=== PATIENT | female | born 1935 | race Caucasian/White ===

== ENCOUNTER 2017-10-20 10:09 | Inpatient (IN) | payer MEDICARE ==
[2017-10-20 11:52] LABS: CKMB 1.2 ng/mL (0-6.6)
[2017-10-20 11:53] LABS: ALT (SGPT) 15 U/L (8-55); AST (SGOT) 14 U/L (5-34); Albumin 3.5 g/dL (3.4-4.8); Alkaline Phosphatase 64 U/L (40-150); Anion Gap 17 mmol/L (10-20); BUN (Urea Nitrogen) 19 mg/dL (9.8-20.1); Bilirubin, Total 0.4 mg/dL (0.2-1.2); Calc. Creatinine Clearance 0 mL/min (70-130); Calcium 8.3 mg/dL (7.8-10.44); Carbon Dioxide 15 mmol/L (23-31); Chloride 107 mmol/L (98-107); Estimated GFR-MDRD 35; Globulin 3.6 g/dL (2.4-3.5); Glucose 96 mg/dL (83-110); Protein, Total 7.1 g/dL (6.0-8.3); Sodium 135 mmol/L (136-145)
--- NOTE | 2017-10-20 12:30 | RAD ---
PA AND LATERAL CHEST: History: Altered mental status. Congestion. Pneumonia. FINDINGS/IMPRESSION: The heart size is borderline. There is a left sided pacemaker. No consolidation, pneumothoraces, lily k pleural edema or pleural effusions are seen. There are degenerative changes in the spine. POS: [facility]
[2017-10-20 13:18] LABS: Bilirubin Negative (Negative); Blood, Urine Moderate (Negative); Clarity Clear (Clear); Glucose, Urine (Dipstick) Negative (Negative); Leukocyte Moderate (Negative); Nitrite Negative (Negative); Protein, Urine (Dipstick) 30 mg/dL (Neg-Trace); Urobilinogen 0.2 mg/dL (0.2-1.0)
[2017-10-20 13:20] LABS: Bacteria/HPF 1+ HPF (None Seen); Renal Epithelial 0-3 HPF (0-3)
[2017-10-20 13:27] LABS: #Basophils 0.1 thou/uL (0.0-0.2); #Lymphocytes 1.1 thou/uL (1.20-3.40); #Monocytes 0.8 thou/uL (0.11-0.59); #Neutrophils 7.5 thou/uL (1.40-6.50); %Basophils 1.1 % (0.0-1.0); %Eosinophils 0.1 % (0.0-10.0); %Neutrophils 78.8 % (42.0-75.0); Anisocytosis SLIGHT = 6-15 cells (100X) (0-5/hpf); Band 20 % (5-11); Elliptocytes SLIGHT = 2-5 cells (100X) (0-1/hpf); Hemoglobin 8.4 g/dL (12.0-16.0); Hypochromia SLIGHT = 6-15 cells (100X) (0-5/hpf); Lymphocytes 10 % (21-51); MDiff Complete? YES; Mean Corpuscular HGB CONC 28.9 g/dL (32.0-36.0); Mean Corpuscular Hemoglobin 24.1 pg (27.0-31.0); Mean Corpuscular Volume 83.2 fl (81.0-99.0); Mean Platelet Volume 5.2 fL (7.4-10.4); Monocytes 4 % (0-10); Neutrophil 64 % (42-75); PLT Morphology Comment Appears Adequate; Platelet Count 226 thou/uL (130-400); Polychromasia SLIGHT = 2-3 cells (100X) (0-2/hpf); RBC Distribution Width 15.2 % (11.5-14.5); Reactive Lymphocytes 2 % (0-10); Red Blood Cell (RBC) Count 3.48 mill/uL (4.20-5.40); Target Cells SLIGHT = 2-5 cells (100X) (0-1/hpf); White Blood Cell (WBC) Count 9.5 thou/uL (4.8-10.8)
[2017-10-20] MEDS ORDERED: Sodium Chloride 0.9% 100 ML ONE (14:39)
[2017-10-20] MEDS ORDERED: cefTRIAXone\\ROCEPHIN 1 GM VIAL ONE (14:39)
[2017-10-20] MEDS ORDERED: Albuterol Sulfate 2.5 mg/3 ml Neb NEB PRN ×2 (15:39→17:15)
[2017-10-20] MEDS ORDERED: Ondansetron HCl/PF 4 MG/2 ML Vial IVP PRN (15:40)
[2017-10-20] MEDS ORDERED: Acetaminophen 325 MG TAB PO PRN (15:40)
[2017-10-20] MEDS ORDERED: Sodium Chloride 0.9% 1,000 ML IV SCH (15:40)
[2017-10-20] MEDS ORDERED: Ondansetron ODT 4 MG TAB SL PRN (15:40)
[2017-10-20] MEDS ORDERED: Azithromycin 500 MG in Sodium Chloride 0.9% 250 ML 250 ML IVPB SCH (16:00)
[2017-10-20 16:01] VITALS: BMI 25.5
[2017-10-20] MEDS: Budesonide 0.5 MG/2 ML NEB NEB SCH ×2 (16:31→19:17)
[2017-10-20] MEDS ORDERED: Ondansetron ODT 4 MG TAB PO PRN (18:11)
[2017-10-20] MEDS ORDERED: Loperamide HCl 2 MG CAP PO PRN (18:11)
[2017-10-20] MEDS ORDERED: Albuterol Sulfate 2.5 mg/3 ml Neb NEB SCH (18:30)
[2017-10-20] MEDS ORDERED: Oseltamivir 75 MG CAP PO SCH (21:00)
[2017-10-20] MEDS ORDERED: Non-Formulary Item 1 EACH (Famotidine [Famotidine] 20 MG) PO SCH (21:00)
[2017-10-20] MEDS: Sodium Chloride 0.9% 1,000 ML IV SCH (22:11)
[2017-10-20] MEDS: Famotidine 20 MG TAB PO SCH (22:12)
[2017-10-20] MEDS: Atorvastatin Calcium 10 MG TAB PO SCH (22:12)
[2017-10-20] MEDS: Valsartan 80 MG TAB PO SCH (22:13)
[2017-10-20] MEDS: Montelukast Sodium 10 mg Tablet PO SCH (22:13)
[2017-10-20] MEDS: PROVENTIL INHALER 6.7 G (200 INHALATIONS) INH SCH (22:14)
[2017-10-21] MEDS: Sodium Chloride 0.9% 1,000 ML IV SCH ×2 (05:47→20:42)
[2017-10-21] MEDS: PROVENTIL INHALER 6.7 G (200 INHALATIONS) INH SCH ×3 (05:48→23:18)
[2017-10-21] MEDS ORDERED: Alendronate Sodium 70 mg Tablet PO SCH (06:00)
[2017-10-21 06:01] LABS: Anion Gap 13 mmol/L (10-20); BUN (Urea Nitrogen) 15 mg/dL (9.8-20.1); Calc. Creatinine Clearance 39 mL/min (70-130); Calcium 7.9 mg/dL (7.8-10.44); Carbon Dioxide 16 mmol/L (23-31); Chloride 111 mmol/L (98-107); Estimated GFR-MDRD 40; Glucose 136 mg/dL (83-110); Sodium 136 mmol/L (136-145)
--- NOTE | 2017-10-21 06:50 | HP ---
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 She was se en in the emergency room and found to have urinary tract infection plus also influenza type B with si gnificant bronchospasms. She was started on Tamiflu and Rocephin and Zithromax in the emergency room , but is still having significant wheezing after nebulizer treatment and is in mild respiratory distr ess when seen by myself. PAST MEDICAL HISTORY: Remarkable as mentioned above for multiple episodes of bronchospasm, usually r equiring steroids to control in the past. She also has a history of well controlled hypertension and hyperlipidemia. She has had several syncopal episodes over the last week or so, felt possibly be du e to dehydration. She has been found in the emergency room also to be significantly anemic with hemo globin 8.4, which is down from hemoglobin 9.7, two weeks ago. There has been no obvious rectal bleed ing, but she has had some problems of burping and indigestion. She has been on her medications of Na menda 10 mg twice daily, Diovan 160 twice daily, famotidine 20 mg a day, venlafaxine 180 mg a day, si mvastatin 20 daily, rivastigmine pills 3 mg twice daily, montelukast 10 mg daily, handheld nebulizer with budesonide twice daily, Perforomist nebulizer inhaler 20 mcg twice daily, Toprol extended releas e 25 mg daily, enteric-coated aspirin 20 mg daily. REVIEW OF SYSTEMS: Difficult because of the patient's dementia. The family there state she has had no problems with headaches, but has had recurrent dizziness, has had 2 syncopal episodes, felt to be due to dehydration, then no hoarseness or sore throat. Pulmonary: She has had recurrent history of cough and wheezing in the past, but only recently started with wheezing, cough over the last several days with labored respiration despite taking her home nebulizers. Cardiovascular: She denies chest pain, orthopnea, paroxysmal nocturnal dyspnea or edema. Gastrointestinal: She denies nausea, vomiti ng, but has had recurrent diarrhea with some belching and no abdominal pain. Genitourinary: She den ies any dysuria, but has had some chronic incontinence. Musculoskeletal: She denies stiffness, swel ling in joints or extremities. PHYSICAL EXAMINATION: GENERAL: The patient is an elderly white female in mild respiratory distress, wheezing is oriented x 3 and cooperative. VITAL SIGNS: Show her to have blood pressure 157/76, O2 sats 100% on room air, temperature is 98.2. LABORATORY AND X-RAY FINDINGS: EKG shows normal sinus rhythm, left bundle branch block. Laboratory shows white count 9500, hematocrit 29, hemoglobin 8.4, sodium 135, potassium 4.0, chloride 107, bicar bonate 15, BUN 19, creatinine 1.44. Lactate 1.3. Cardiac enzymes normal. Urinalysis shows TNTC whi te cells. ASSESSMENT AND PLAN: 1. An 82-year-old white female with a history of chronic obstructive pulmonary disease and bronchosp asms who presents with influenza type A and recurrent bronchospasms and weakness, dehydration with ne ar syncopal episodes. 2. Increased anemia, drastically changed over the last 2 weeks with decrease in the hemoglobin, 2 gr ams with no obvious evidence of rectal bleeding, but with symptoms of some indigestion and burping po ssibly due to peptic ulcer disease, her family does not wish any endoscopic evaluation. We will margo t for this with Protonix. 3. Urinary tract infection. We will treat with Rocephin 1 gram IV piggyback until cultures return. 4. Influenza type A. We will continue with 5 days of Tamiflu 75 twice daily. 5. Dehydration. We will treat with normal saline of 1000 mL, 75 mL an hour and repeat basic metabol ic profile, CBC and obtain results of blood and urine cultures have done. We will start on the Solu- Medrol 40 q.6 hours for the bronchospasm as well as handheld nebulizer, continuing on her home medica tion and we will guaiac all stools, but we will not do any invasive evaluation at the family's reques t. She is not to be resuscitated at her request and advance directive.
[2017-10-21] MEDS: Rivastigmine Tartrate 1.5 MG CAP PO SCH ×2 (09:15→17:28)
[2017-10-21] MEDS: Azithromycin 250 MG TAB PO SCH (09:16)
[2017-10-21] MEDS: Loratadine 10 MG TAB PO SCH (09:17)
[2017-10-21] MEDS: Valsartan 80 MG TAB PO SCH ×2 (09:18→20:41)
[2017-10-21 12:36] LABS: #Lymphocytes 0.6 thou/uL (1.20-3.40); #Monocytes 0.1 thou/uL (0.11-0.59); #Neutrophils 5.5 thou/uL (1.40-6.50); %Eosinophils 0.1 % (0.0-10.0); %Lymphocytes 9.8 % (21.0-51.0); %Monocytes 1.9 % (0.0-10.0); %Neutrophils 88.1 % (42.0-75.0); Hemoglobin 8.3 g/dL (12.0-16.0); Mean Corpuscular HGB CONC 31.5 g/dL (32.0-36.0); Mean Corpuscular Hemoglobin 26.5 pg (27.0-31.0); Mean Corpuscular Volume 84.3 fl (81.0-99.0); Mean Platelet Volume 7.7 fL (7.4-10.4); Platelet Count 229 thou/uL (130-400); RBC Distribution Width 15.8 % (11.5-14.5); Red Blood Cell (RBC) Count 3.13 mill/uL (4.20-5.40); White Blood Cell (WBC) Count 6.2 thou/uL (4.8-10.8)
[2017-10-21] MEDS ORDERED: cefTRIAXone\\ROCEPHIN 1 GM, Syringe 0.4 ML in Sterile Water 9.6 ML SLOW IVP SCH (15:00)
[2017-10-21] MEDS: cefTRIAXone\\ROCEPHIN 1 GM VIAL SLOW IVP SCH (15:26)
[2017-10-21] MEDS: Famotidine 20 MG TAB PO SCH (20:41)
[2017-10-21] MEDS: Montelukast Sodium 10 mg Tablet PO SCH (20:41)
[2017-10-21] MEDS: Atorvastatin Calcium 10 MG TAB PO SCH (20:41)
--- NOTE | 2017-10-21 23:08 | PRG ---
DATE OF SERVICE: 08/21/2017 SUBJECTIVE: The patient looks much better with decreasing cough, wheezing, rested well, increasing s trength, has good appetite. OBJECTIVE: VITAL SIGNS: Shows temperature is 96.6, pulse 73, respirations 20, O2 sats 97%, blood pressure 118/6 4. LUNGS: Show increased breath sounds with a few diffuse wheezes and rhonchi. GASTROINTESTINAL: Abdomen is soft and nontender. SKIN AND EXTREMITIES: Showed no edema, clubbing, or cyanosis. LABORATORY DATA: Laboratory show white count 6200, 88% segs and no bands. Sodium is 136, potassium 4.0, chloride 107, bicarbonate 16, BUN 15, creatinine 1.29. ASSESSMENT: 1. Resolving chronic obstructive pulmonary disease with exacerbation on IV steroids and handheld neb ulizer with DuoNebs. 2. Resolving influenza A, possible cause of exacerbation COPD on Tamiflu. 3. Urinary tract infection, on Rocephin. Culture showing no growth at 24 hours. 4. Dehydration, resolving, on IV saline, we will possibly discontinue in the morning. 5. New onset of microcytic anemia. We will get stool guaiacs with concern this is occult ulcer vers us possible colonic lesion. The family does not wish any further evaluation, but agrees to treatment with iron and with Protonix for possible iron deficiency anemia from ulcer. The patient and family reiterated DNR status and advanced directive.
[2017-10-22 05:58] LABS: Anisocytosis SLIGHT = 6-15 cells (100X) (0-5/hpf); Band 9 % (5-11); Hemoglobin 7.5 g/dL (12.0-16.0); Hypochromia MODERATE=16-30 cells (100X) (0-5/hpf); Lymphocytes 26 % (21-51); MDiff Complete? YES; Mean Corpuscular HGB CONC 30.1 g/dL (32.0-36.0); Mean Corpuscular Hemoglobin 24.3 pg (27.0-31.0); Mean Corpuscular Volume 80.8 fl (81.0-99.0); Mean Platelet Volume 6.9 fL (7.4-10.4); Monocytes 2 % (0-10); Neutrophil 63 % (42-75); PLT Morphology Comment Appears Adequate; Platelet Count 197 thou/uL (130-400); RBC Distribution Width 15.7 % (11.5-14.5); Red Blood Cell (RBC) Count 3.09 mill/uL (4.20-5.40); White Blood Cell (WBC) Count 5.3 thou/uL (4.8-10.8)
[2017-10-22] MEDS: PROVENTIL INHALER 6.7 G (200 INHALATIONS) INH SCH ×2 (06:00→14:49)
[2017-10-22] MEDS: Ferrous Gluconate 324 MG TAB PO SCH (08:52)
[2017-10-22] MEDS: Rivastigmine Tartrate 1.5 MG CAP PO SCH ×2 (08:52→17:36)
[2017-10-22] MEDS: Loratadine 10 MG TAB PO SCH (08:53)
[2017-10-22] MEDS: Azithromycin 250 MG TAB PO SCH (08:53)
[2017-10-22] MEDS: Valsartan 80 MG TAB PO SCH ×2 (08:54→21:19)
[2017-10-22] MEDS: cefTRIAXone\\ROCEPHIN 1 GM VIAL SLOW IVP SCH (14:49)
[2017-10-22] MEDS: Montelukast Sodium 10 mg Tablet PO SCH (21:19)
[2017-10-22] MEDS: Famotidine 20 MG TAB PO SCH (21:20)
[2017-10-22] MEDS: Atorvastatin Calcium 10 MG TAB PO SCH (21:20)
[2017-10-23] MEDS: PROVENTIL INHALER 6.7 G (200 INHALATIONS) INH SCH ×4 (00:12→23:20)
[2017-10-23] MEDS: Valsartan 80 MG TAB PO SCH ×2 (09:21→21:08)
[2017-10-23] MEDS: Azithromycin 250 MG TAB PO SCH (09:22)
[2017-10-23] MEDS: Rivastigmine Tartrate 1.5 MG CAP PO SCH ×2 (09:22→17:33)
[2017-10-23] MEDS: Ferrous Gluconate 324 MG TAB PO SCH (09:22)
[2017-10-23] MEDS: Loratadine 10 MG TAB PO SCH (09:23)
[2017-10-23] MEDS ORDERED: Sterile Water 10 ML ONE (15:18)
[2017-10-23] MEDS: cefTRIAXone\\ROCEPHIN 1 GM VIAL SLOW IVP SCH (15:32)
[2017-10-23] MEDS: Famotidine 20 MG TAB PO SCH (21:08)
[2017-10-23] MEDS: Atorvastatin Calcium 10 MG TAB PO SCH (21:08)
[2017-10-23] MEDS: Montelukast Sodium 10 mg Tablet PO SCH (21:08)
--- NOTE | 2017-10-23 21:49 | PRG ---
DATE OF ADMISSION: 10/20/2017 DATE OF SERVICE: 10/23/2017 HISTORY OF PRESENT ILLNESS: Ms. Keane is a very pleasant 82-year-old white female that presented to the ER with diarrhea and weakness. She was found to have urinary tract infection plus influenza t ype B and significant diarrhea. She was admitted to the hospital and noted be very dehydrated. She was restarted on all of her medications and started on Tamiflu, Rocephin, and Zithromax. She has als o had nebulizer treatments as needed. SUBJECTIVE: The patient states she is feeling much better and wants to go home, although she knows s he cannot. Unfortunately, her daughter and her daughter's and granddaughter all have come do wn with influenza. They are all sick and had no one to care for her, but she still requires her IV a ntibiotics and care at this time. She has no complaints at this time. PHYSICAL EXAMINATION: VITAL SIGNS: Reveal blood pressure 113/58, pulse 64 to 77, respirations 18 to 20, O2 sat 94% to 97%, and T-max 98.5. GENERAL: This is a well-developed, well-nourished, slightly obese white female, in no apparent distr ess at this time. HEENT: Reveals normocephalic, nontraumatic cranium. Pupils are equally round and reactive. Extraoc ular movements are intact. Nose and throat are slightly dry, but clear. NECK: Supple, without masses, nodes or bruits. CHEST: Clear to auscultation. No rales, rhonchi or wheezes are heard. HEART: Reveals a regular rate and rhythm without murmurs, gallops or rubs. ABDOMEN: Soft, obese, nontender, without organomegaly. Normal bowel sounds are noted or slightly hy peractive bowel sounds are noted. : Deferred. EXTREMITIES: Reveal no clubbing, cyanosis or edema. LABORATORY DATA: No labs were done today. ASSESSMENT: 1. Acute exacerbation of chronic obstructive pulmonary disease, presented to the hospital with influ isamar type B with bronchospasms. 2. Anemia. 3. Urinary tract infection, presently on 1 gram Rocephin IV q.24 hours. 4. Tamiflu. 5. Dehydration. PLAN: 1. Continue present medications. 2. Continue nebulizer treatments p.r.n. 3. Continue Rocephin. Awaiting culture and sensitivities. 4. Encourage the patient to bland foods at this time. 5. Watch the patient's anemia. 6. Stress ulcer prophylaxis. 7. Decubitus precautions. 8. Deep venous thrombosis prophylaxis. 9. Supportive care.
[2017-10-24] MEDS: PROVENTIL INHALER 6.7 G (200 INHALATIONS) INH SCH ×3 (05:32→23:38)
[2017-10-24] MEDS: Ferrous Gluconate 324 MG TAB PO SCH (10:02)
[2017-10-24] MEDS: Loratadine 10 MG TAB PO SCH (10:02)
[2017-10-24] MEDS: Azithromycin 250 MG TAB PO SCH (10:02)
[2017-10-24] MEDS: Valsartan 80 MG TAB PO SCH ×2 (10:02→21:03)
[2017-10-24] MEDS: Rivastigmine Tartrate 1.5 MG CAP PO SCH ×2 (10:03→17:11)
[2017-10-24] MEDS ORDERED: Sterile Water 10 ML ONE (16:03)
[2017-10-24] MEDS: cefTRIAXone\\ROCEPHIN 1 GM VIAL SLOW IVP SCH (16:12)
[2017-10-24] MEDS: Famotidine 20 MG TAB PO SCH (21:03)
[2017-10-24] MEDS: Atorvastatin Calcium 10 MG TAB PO SCH (21:03)
[2017-10-24] MEDS: Montelukast Sodium 10 mg Tablet PO SCH (21:03)
--- NOTE | 2017-10-24 23:50 | PRG ---
DATE OF SERVICE: 10/24/2017 SUBJECTIVE: Ms. Keane is a very pleasant 82-year-old white female who presented to the ER with di arrhea and weakness. She was found to have urinary tract infection plus influenza type B and signifi cant diarrhea. She was admitted to the hospital and noted to be very dehydrated. Restrated on her m edications including Tamiflu, Rocephin, and Zithromax. She has had nebulizer treatments also as need ed. The patient was very lethargic this morning, but as the day is going on, she has gotten much better. She still does not eat very much, but she is drinking better. Her daughter spent all day with her a nd noticed that she seemed to be getting much better today. Her daughter's , [id number], and granddaughter all have come down with influenza. The patient states she feels much better today and would like to go home, although she knows she coral ot go home yet. PHYSICAL EXAMINATION: VITAL SIGNS: Blood pressure this morning was 146/67, pulse 66-69, respirations 18-20, O2 sat 94% - 9 5%, T-max 97.9. GENERAL: This is a well-developed, well-nourished, very pleasant, slightly obese white female in no apparent distress at this time. HEENT: Reveals normocephalic, atraumatic cranium. Pupils are equally round and reactive. Extraocul ar movements are intact. Nose and throat are slightly dry but clear. NECK: Supple, without masses, nodes, or bruits. CHEST: Clear to auscultation. No rales, no rhonchi, no wheezes are noted. No cough is heard today. HEART: Reveals a regular rate and rhythm without murmurs, gallops, or rubs. ABDOMEN: Obese, soft, and nontender. No organomegaly is noted. Normal bowel sounds are noted in al l 4 quadrants. Bowel sounds yesterday were hyperactive; they are back to normal today. GENITOURINARY: Deferred. EXTREMITIES: Reveal no clubbing, cyanosis, with trace edema. IMPRESSION: 1. Acute exacerbation of chronic obstructive pulmonary disease. 2. Influenza B with bronchospasm. 3. Anemia. 4. Urinary tract infection, presently on Rocephin IV q.24 h. 5. Tamiflu. 6. Dehydration. PLAN: 1. Continue present medications. 2. Continue nebulizer treatments p.r.n. 3. Continue Rocephin, awaiting culture and sensitivities. 4. Encouraged the patient to continue eating bland foods and to eat a little bit better. She is eat ing poorly. 5. Follow the patient's anemia. 6. Stress ulcer prophylaxis. 7. DVT prophylaxis. 8. Decubitus precautions. 9. Supportive care.
[2017-10-25] MEDS: PROVENTIL INHALER 6.7 G (200 INHALATIONS) INH SCH ×3 (05:53→20:48)
[2017-10-25] MEDS: Ferrous Gluconate 324 MG TAB PO SCH (08:20)
[2017-10-25] MEDS: Rivastigmine Tartrate 1.5 MG CAP PO SCH ×2 (08:20→17:29)
[2017-10-25] MEDS: Loratadine 10 MG TAB PO SCH (08:20)
[2017-10-25] MEDS: Valsartan 80 MG TAB PO SCH ×2 (08:21→20:49)
[2017-10-25] MEDS: cefTRIAXone\\ROCEPHIN 1 GM VIAL SLOW IVP SCH (14:56)
--- NOTE | 2017-10-25 18:45 | PRG ---
DATE OF ADMISSION: 10/20/2017 DATE OF SERVICE: 10/25/2017 HISTORY OF PRESENT ILLNESS: Ms. Keane is a very pleasant 82-year-old white female went to the [facility] room with diarrhea and weakness. She was found to have urinary tract infection and influenza B and significant diarrhea. She was admitted to the hospital and noted to be very dehydrated. She w as restarted on medicines which include Tamiflu, Rocephin and Zithromax. She had nebulizer treatment s as needed. The patient states she is doing much better, feeling much better and wants to go home soon. She has no complaints. She states she is eating and drinking better. Her daughter is not with her today, bu t says that everybody is at home sick with the flu and cannot take care at this time. PHYSICAL EXAMINATION: VITAL SIGNS: Reveal blood pressure this morning 171/80, pulse 60, respirations 18-20, oxygen saturat ion 93-95%, T-max 97.9. GENERAL: This is a well-developed, well-nourished, very pleasant white female in no apparent distres s at this time. HEENT: Reveals normocephalic, nontraumatic cranium. Pupils equal, round, and reactive. Extraocular movements intact. Nose and throat are still slightly dry. NECK: Supple, without masses, nodes or bruits. CHEST: Clear to auscultation. No rales, no rhonchi, no wheezes are heard. No cough is heard today. CARDIOVASCULAR: Reveals a regular rate and rhythm without murmurs, gallops or rubs. ABDOMEN: Obese, soft, and nontender. No organomegaly is noted. Normal bowel sounds are noted. No rebound or guarding is noted. GENITOURINARY: Deferred. EXTREMITIES: Reveal no clubbing, cyanosis or edema. IMPRESSION: 1. Acute exacerbation of chronic obstructive pulmonary disease. 2. Influenza B with bronchospasm. 3. Urinary tract infection, presently on Rocephin IV. 4. Anemia. 5. Tamiflu. 6. Dehydration. PLAN: 1. Continue nebulizer treatments p.r.n. 2. Continue Rocephin. 3. Continue nebulizer treatments. 4. Encourage the patient to eat a little bit better. 5. Continue to follow the patient's anemia. 6. Stress ulcer prophylaxis. 7. DVT prophylaxis. 8. Decubitus precautions. 9. Supportive care.
[2017-10-25] MEDS: Atorvastatin Calcium 10 MG TAB PO SCH (20:49)
[2017-10-25] MEDS: Montelukast Sodium 10 mg Tablet PO SCH (20:49)
[2017-10-25] MEDS: Famotidine 20 MG TAB PO SCH (20:49)
[2017-10-26] MEDS: PROVENTIL INHALER 6.7 G (200 INHALATIONS) INH SCH ×3 (05:27→23:03)
[2017-10-26 05:54] LABS: ALT (SGPT) 16 U/L (8-55); AST (SGOT) 9 U/L (5-34); Alkaline Phosphatase 52 U/L (40-150); Anion Gap 13 mmol/L (10-20); BUN (Urea Nitrogen) 25 mg/dL (9.8-20.1); Bilirubin, Total 0.3 mg/dL (0.2-1.2); Calc. Creatinine Clearance 46 mL/min (70-130); Calcium 7.6 mg/dL (7.8-10.44); Carbon Dioxide 21 mmol/L (23-31); Chloride 106 mmol/L (98-107); Estimated GFR-MDRD 49; Globulin 2.8 g/dL (2.4-3.5); Glucose 154 mg/dL (83-110); Potassium 3.2 mmol/L (3.5-5.1); Protein, Total 5.8 g/dL (6.0-8.3); Sodium 137 mmol/L (136-145)
[2017-10-26 05:57] LABS: #Lymphocytes 0.7 thou/uL (1.20-3.40); #Monocytes 0.4 thou/uL (0.11-0.59); #Neutrophils 5.5 thou/uL (1.40-6.50); %Basophils 0.4 % (0.0-1.0); %Lymphocytes 9.9 % (21.0-51.0); %Monocytes 6.3 % (0.0-10.0); %Neutrophils 83.5 % (42.0-75.0); Hemoglobin 8.9 g/dL (12.0-16.0); Hypochromia SLIGHT = 6-15 cells (100X) (0-5/hpf); MDiff Complete? YES; Mean Corpuscular HGB CONC 30.5 g/dL (32.0-36.0); Mean Corpuscular Hemoglobin 24.3 pg (27.0-31.0); Mean Corpuscular Volume 79.9 fl (81.0-99.0); Mean Platelet Volume 6.9 fL (7.4-10.4); Microcytosis SLIGHT = 6-15 cells (100X) (0-5/hpf); Ovalocytes SLIGHT = 2-5 cells (100X) (0-1/hpf); PLT Morphology Comment Appears Adequate; Platelet Count 218 thou/uL (130-400); Poikilocytosis SLIGHT = 6-15 cells (100X) (0-5/hpf); Polychromasia SLIGHT = 2-3 cells (100X) (0-2/hpf); RBC Distribution Width 15.7 % (11.5-14.5); Red Blood Cell (RBC) Count 3.67 mill/uL (4.20-5.40); Target Cells SLIGHT = 2-5 cells (100X) (0-1/hpf); White Blood Cell (WBC) Count 6.6 thou/uL (4.8-10.8)
[2017-10-26] MEDS: Ferrous Gluconate 324 MG TAB PO SCH (08:43)
[2017-10-26] MEDS: Loratadine 10 MG TAB PO SCH (08:44)
[2017-10-26] MEDS: Rivastigmine Tartrate 1.5 MG CAP PO SCH ×2 (08:44→17:27)
[2017-10-26] MEDS: Valsartan 80 MG TAB PO SCH ×2 (08:45→20:14)
[2017-10-26] MEDS: cefTRIAXone\\ROCEPHIN 1 GM VIAL SLOW IVP SCH (15:01)
[2017-10-26] MEDS: Famotidine 20 MG TAB PO SCH (20:14)
[2017-10-26] MEDS: Atorvastatin Calcium 10 MG TAB PO SCH (20:15)
[2017-10-26] MEDS: Montelukast Sodium 10 mg Tablet PO SCH (20:15)
[2017-10-26] MEDS: Cefdinir 300 MG CAP PO SCH (20:16)
[2017-10-27] MEDS: PROVENTIL INHALER 6.7 G (200 INHALATIONS) INH SCH ×2 (05:21→14:53)
[2017-10-27] MEDS ORDERED: predniSONE 20 MG TAB PO SCH (08:00)
[2017-10-27] MEDS ORDERED: Potassium Chloride 20 MEQ TAB PO SCH (08:00)
[2017-10-27 08:24] VITALS: TEMP 97.2
[2017-10-27] MEDS: Cefdinir 300 MG CAP PO SCH (08:37)
[2017-10-27] MEDS: Valsartan 80 MG TAB PO SCH (08:37)
[2017-10-27] MEDS: Loratadine 10 MG TAB PO SCH (08:38)
[2017-10-27] MEDS: Ferrous Gluconate 324 MG TAB PO SCH (11:53)
[2017-10-27] MEDS ORDERED: Rivastigmine Tartrate 1.5 MG CAP PO SCH ×2 (12:00→17:00)
--- NOTE | 2017-10-27 12:42 | PRG ---
DATE OF SERVICE: 10/26/2017 SUBJECTIVE: The patient feels much better with no cough, wheezing, shortness of breath. Has been wa lking and eating well. OBJECTIVE: VITAL SIGNS: Blood pressure 179/80, pulse 62, respirations 18, O2 sats 94%, afebrile. LUNGS: Clear with rare rhonchi or wheeze. CARDIAC: Regular rhythm. No gallops or murmurs. ABDOMEN: Soft and nontender with no masses or organomegaly. SKIN AND EXTREMITIES: Showed no edema, clubbing, r cyanosis. LABORATORY: Shows white count 6600, hematocrit 29, hemoglobin 8.9. Sodium 137, potassium 3.2, chlor tania 106, bicarbonate 21, BUN 25, creatinine 1.08. ASSESSMENT: 1. Resolving chronic obstructive pulmonary disease with exacerbation. 2. Stable dementia. 3. Resolving influenza B. 4. Resolving urinary tract infection on IV Rocephin. PLAN: 1. Discontinue IV Solu-Medrol, start on prednisone 40 mg daily. 2. Discontinue ceftriaxone, start on cefdinir 900 mg twice daily. 3. Start potassium 20 mEq daily.
[2017-10-27 13:36] VITALS: BP 145/80
[2017-10-27] MEDS ORDERED: Loperamide HCl 2 MG CAP PO PRN (17:16)
== END 2017-10-27 17:16 | disposition swing bed (61) | DRG 194 ==
LOC: NAV ERS 10:09 → NAV ACUTE 15:15
PROVIDERS: ADMIT Internal Medicine; ATTEND Internal Medicine
DX: J10.1 Influenza due to other identified influenza virus with other respiratory manifestations (principal); N39.0 Urinary tract infection, site not specified; J44.1 Chronic obstructive pulmonary disease with (acute) exacerbation; D64.9 Anemia, unspecified; G30.1 Alzheimer's disease with late onset; F02.80 Dementia in other diseases classified elsewhere, unspecified severity, without behavioral disturbance, psychotic disturbance, mood disturbance, and anxiety; E86.0 Dehydration; N18.3 Chronic kidney disease, stage 3 (moderate); E78.5 Hyperlipidemia, unspecified; I12.9 Hypertensive chronic kidney disease with stage 1 through stage 4 chronic kidney disease, or unspecified chronic kidney disease; I44.7 Left bundle-branch block, unspecified; J45.20 Mild intermittent asthma, uncomplicated
CPT/HCPCS: 36415; 71020; 80048; 80053; 81003; 81015; 82553; 83605; 84484; 85025; 87086; 93005; 96361; 96365; A4216; A4353; J0456; J0696; J2920; J7050; J7506; J7611; J7620; J7626

== ENCOUNTER 2017-10-27 17:30 | Inpatient (IN) | payer MEDICARE ==
[2017-10-27] MEDS ORDERED: Ondansetron ODT 4 MG TAB PO PRN (17:48)
[2017-10-27] MEDS ORDERED: Loperamide HCl 2 MG CAP PO PRN (17:50)
[2017-10-27] MEDS: Cefdinir 300 MG CAP PO SCH (20:23)
[2017-10-27] MEDS: Atorvastatin Calcium 10 MG TAB PO SCH (20:23)
[2017-10-27] MEDS: Famotidine 20 MG TAB PO SCH (20:23)
[2017-10-27] MEDS: PROVENTIL INHALER 6.7 G (200 INHALATIONS) INH SCH (20:24)
[2017-10-27] MEDS: Valsartan 80 MG TAB PO SCH (20:24)
[2017-10-27] MEDS: Montelukast Sodium 10 mg Tablet PO SCH (20:24)
[2017-10-28] MEDS: PROVENTIL INHALER 6.7 G (200 INHALATIONS) INH SCH ×3 (05:45→20:34)
[2017-10-28] MEDS ORDERED: Ferrous Gluconate 324 MG TAB PO SCH (08:00)
[2017-10-28] MEDS: Loratadine 10 MG TAB PO SCH (09:05)
[2017-10-28] MEDS: predniSONE 20 MG TAB PO SCH (09:05)
[2017-10-28] MEDS: Valsartan 80 MG TAB PO SCH ×2 (09:06→20:34)
[2017-10-28] MEDS: Cefdinir 300 MG CAP PO SCH ×2 (09:08→20:33)
[2017-10-28] MEDS: Rivastigmine 1.5 MG CAP PO SCH ×2 (09:08→17:26)
[2017-10-28] MEDS: Potassium Chloride 20 MEQ TAB PO SCH (09:09)
[2017-10-28] MEDS: Ferrous Gluconate 324 MG TAB PO SCH (12:37)
[2017-10-28] MEDS: Atorvastatin Calcium 10 MG TAB PO SCH (20:33)
[2017-10-28] MEDS: Famotidine 20 MG TAB PO SCH (20:34)
[2017-10-28] MEDS: Montelukast Sodium 10 mg Tablet PO SCH (20:34)
[2017-10-29] MEDS: PROVENTIL INHALER 6.7 G (200 INHALATIONS) INH SCH ×3 (06:05→21:14)
[2017-10-29] MEDS: Valsartan 80 MG TAB PO SCH ×2 (08:41→21:14)
[2017-10-29] MEDS: Rivastigmine 1.5 MG CAP PO SCH ×2 (08:42→16:59)
[2017-10-29] MEDS: Potassium Chloride 20 MEQ TAB PO SCH (08:42)
[2017-10-29] MEDS: predniSONE 20 MG TAB PO SCH (08:42)
[2017-10-29] MEDS: Cefdinir 300 MG CAP PO SCH ×2 (08:42→21:13)
[2017-10-29] MEDS: Loratadine 10 MG TAB PO SCH (08:42)
[2017-10-29] MEDS: Ferrous Gluconate 324 MG TAB PO SCH (14:37)
--- NOTE | 2017-10-29 19:07 | HP ---
DATE OF ADMISSION: 10/28/2017 HISTORY OF PRESENT ILLNESS: The patient is improving with decreasing cough, shortness of breath, inc reased strength, but he remained significantly confused and unable to maintain ADLs. She has finishe d her course of Tamiflu and Rocephin, and has been on Omnicef and is having decreasing cough and aysha estion. PHYSICAL EXAMINATION: VITAL SIGNS: Blood pressure 145/80, pulse 95, respirations 16, O2 sat is 95% on room air. HEENT: Pupils are equal, round, and react to light and accommodation. Sclerae are anicteric. LUNGS: Show good breath sounds with a few rhonchi or wheezes. CARDIAC: Regular rhythm. ABDOMEN: Soft, nontender. SKIN/EXTREMITIES: Show no edema. NEUROLOGIC: The patient is walking 326 feet with a rolling walker, standby assistance, making progre ss, not met any conditions of goal, however. ASSESSMENT AND PLAN: 1. Resolving influenza and exacerbation of chronic obstructive pulmonary disease, on oral steroids a nd antibiotics. 2. Significant dementia with hospital postdelirium and stable, possibly slightly worsened today. 3. Resolving urinary tract infection. 4. Hypokalemia. PLAN: Transfer to same unit, continue on Omnicef 300 twice daily, potassium 20 mEq daily, prednisone 40 daily, and previous medications of rivastigmine 3 mg twice daily and metoprolol 25 twice daily an d handheld nebulizers q.4 h. p.r.n. and continue PT, OT, and discussed with the family in the future discharge planning.
--- NOTE | 2017-10-29 20:05 | PRG ---
MEDICAL PROGRESS NOTE DATE OF SERVICE: 10/29/2017 SUBJECTIVE: The patient feels well, but is slightly more confused today, is not eating well and has not been maintaining her ADLs without assistance. Family states that they do not have the capability of staying with her at home because of working and did not have finances at this time to have round the clock care and needs her to be more able to maintain her ADLs. OBJECTIVE: VITAL SIGNS: Shows a temperature of 98, pulse 62, respirations 16, O2 sats 94% and blood pressure 11 8/66. LUNGS: Show a few diffuse rhonchi. CARDIAC: Examination shows regular rhythm. ABDOMEN: Soft and nontender. SKIN AND EXTREMITIES: Display no edema, clubbing or cyanosis. NEUROLOGIC: Intact with only signs of delirium with no focal findings. ASSESSMENT AND PLAN: Continue bronchodilator therapy, oral steroids and antibiotics. We will also c enrique on PT, OT. The patient is unable to maintain ADLs at home. We will refer family to [facility] for assistance.
[2017-10-29] MEDS: Famotidine 20 MG TAB PO SCH (21:13)
[2017-10-29] MEDS: Atorvastatin Calcium 10 MG TAB PO SCH (21:13)
[2017-10-29] MEDS: Montelukast Sodium 10 mg Tablet PO SCH (21:13)
[2017-10-30] MEDS: PROVENTIL INHALER 6.7 G (200 INHALATIONS) INH SCH ×3 (05:19→21:45)
[2017-10-30] MEDS: Rivastigmine 1.5 MG CAP PO SCH ×2 (09:10→17:52)
[2017-10-30] MEDS: predniSONE 20 MG TAB PO SCH (09:10)
[2017-10-30] MEDS: Potassium Chloride 20 MEQ TAB PO SCH (09:10)
[2017-10-30] MEDS: Valsartan 80 MG TAB PO SCH ×2 (09:12→20:42)
[2017-10-30] MEDS: Loratadine 10 MG TAB PO SCH (09:12)
[2017-10-30] MEDS: Cefdinir 300 MG CAP PO SCH ×2 (09:12→20:43)
[2017-10-30] MEDS: Ferrous Gluconate 324 MG TAB PO SCH (12:05)
--- NOTE | 2017-10-30 16:35 | PRG ---
DATE OF SERVICE: 10/30/2017 SUBJECTIVE: Ms. Keane is doing well. Denies any complaints, resting comfortably. States that sherman hoff is getting stronger and is almost ready to go home. OBJECTIVE: VITAL SIGNS: She is afebrile, heart rate is 62, respirations 18, oxygen saturation 94%, blood pressu re 117/59. CARDIOVASCULAR SYSTEM: S1, S2 plus. RESPIRATORY SYSTEM: Normal vesicular breath sounds. ABDOMEN: Soft, nontender, bowel sounds heard in all quadrants. EXTREMITIES: Without cyanosis or clubbing. Peripheral pulses are palpable. CENTRAL NERVOUS SYSTEM: Grossly nonfocal. IMPRESSION: 1. Improving influenza. 2. Chronic obstructive pulmonary disease exacerbation. 3. Dementia. 4. Resolving urinary tract infection. 5. Hypokalemia. PLAN: 1. Continue current medications. 2. Nutritional support. 3. Physical therapy. 4. Titrate prednisone. 5. DVT and stress ulcer prophylaxis. 6. Decubitus precautions.
[2017-10-30] MEDS: Atorvastatin Calcium 10 MG TAB PO SCH (20:42)
[2017-10-30] MEDS: Famotidine 20 MG TAB PO SCH (20:42)
[2017-10-30] MEDS: Montelukast Sodium 10 mg Tablet PO SCH (20:42)
[2017-10-31] MEDS: PROVENTIL INHALER 6.7 G (200 INHALATIONS) INH SCH ×3 (06:02→21:39)
[2017-10-31] MEDS: Loratadine 10 MG TAB PO SCH (08:14)
[2017-10-31] MEDS: Cefdinir 300 MG CAP PO SCH ×2 (08:14→21:24)
[2017-10-31] MEDS: Potassium Chloride 20 MEQ TAB PO SCH (08:14)
[2017-10-31] MEDS: predniSONE 20 MG TAB PO SCH (08:14)
[2017-10-31] MEDS: Rivastigmine 1.5 MG CAP PO SCH ×2 (08:14→17:51)
[2017-10-31] MEDS: Valsartan 80 MG TAB PO SCH ×2 (08:15→21:24)
--- NOTE | 2017-10-31 11:52 | PRG ---
DATE OF SERVICE: 10/31/2017 SUBJECTIVE: Ms. Keane is doing well. She is slightly somnolent. She is in bed and did not eat m uch of her breakfast. OBJECTIVE: VITAL SIGNS: She is afebrile, heart rate is 61, respirations are 18, oxygen saturation 94%, blood pr essure is 106/57. CARDIOVASCULAR SYSTEM: S1, S2 plus. RESPIRATORY SYSTEM: Normal vesicular breath sounds. ABDOMEN: Soft, nontender, bowel sounds heard in all quadrants. EXTREMITIES: Without cyanosis or clubbing. CENTRAL NERVOUS SYSTEM: Generalized weakness. IMPRESSION: 1. Resolving influenza. 2. Chronic obstructive pulmonary disease. 3. Generalized weakness. 4. Resolving urinary tract infection. 5. Dementia. 6. Fluctuating p.o. intake. PLAN: 1. Reinforced to the patient about the importance of good caloric intake. 2. Continue current medications. 3. Physical therapy. 4. DVT and stress ulcer prophylaxis. 5. Decubitus precautions. 6. Routine laboratory values. 7. Dr. Keegan Begum back tonight.
[2017-10-31] MEDS: Ferrous Gluconate 324 MG TAB PO SCH (12:28)
[2017-10-31] MEDS: Montelukast Sodium 10 mg Tablet PO SCH (21:24)
[2017-10-31] MEDS: Atorvastatin Calcium 10 MG TAB PO SCH (21:24)
[2017-10-31] MEDS: Famotidine 20 MG TAB PO SCH (21:24)
[2017-11-01] MEDS: PROVENTIL INHALER 6.7 G (200 INHALATIONS) INH SCH ×3 (06:13→20:44)
[2017-11-01] MEDS: predniSONE 20 MG TAB PO SCH (08:31)
[2017-11-01] MEDS: Potassium Chloride 20 MEQ TAB PO SCH (08:32)
[2017-11-01] MEDS: Rivastigmine 1.5 MG CAP PO SCH ×2 (08:32→17:18)
[2017-11-01] MEDS: Valsartan 80 MG TAB PO SCH ×2 (08:32→20:44)
[2017-11-01] MEDS: Loratadine 10 MG TAB PO SCH (08:32)
[2017-11-01] MEDS: Cefdinir 300 MG CAP PO SCH ×2 (08:33→20:43)
--- NOTE | 2017-11-01 10:20 | PRG ---
DATE OF SERVICE: 11/01/2017 SUBJECTIVE: The patient feels sleepy and tired, but with no respiratory distress, eating fairly well with no complaints. OBJECTIVE: Shows, VITAL SIGNS: Her blood pressure is 108/59, temperature is 98, pulse 63, respirations 16, O2 sats 94% . LUNGS: Clear. CARDIAC EXAMINATION: Shows regular rhythm. ABDOMEN: Soft and nontender. SKIN AND EXTREMITIES: Display no edema, clubbing, cyanosis. NEUROLOGICAL: Shows no focal findings. ASSESSMENT: 1. Resolving chronic obstructive pulmonary disease with exacerbation. 2. Resolved influenza. 3. Persistent dementia with possible worsening here in the hospital. 4. Severe deconditioning. PLAN: 1. Possible transfer to [facility] skilled for continued PT. 2. Wean off prednisone down to 20 mg daily. 3. Repeat CBC, comprehensive metabolic panel, and BNP today.
[2017-11-01] MEDS: Ferrous Gluconate 324 MG TAB PO SCH (12:07)
[2017-11-01 13:31] LABS: ALT (SGPT) 17 U/L (8-55); AST (SGOT) 10 U/L (5-34); Albumin 3.4 g/dL (3.4-4.8); Alkaline Phosphatase 64 U/L (40-150); Anion Gap 16 mmol/L (10-20); BUN (Urea Nitrogen) 18 mg/dL (9.8-20.1); Bilirubin, Total 0.5 mg/dL (0.2-1.2); Calc. Creatinine Clearance 35 mL/min (70-130); Calcium 8.2 mg/dL (7.8-10.44); Carbon Dioxide 21 mmol/L (23-31); Chloride 106 mmol/L (98-107); Estimated GFR-MDRD 36; Globulin 2.5 g/dL (2.4-3.5); Glucose 129 mg/dL (83-110); Potassium 4.8 mmol/L (3.5-5.1); Protein, Total 5.9 g/dL (6.0-8.3); Sodium 138 mmol/L (136-145)
[2017-11-01 13:48] LABS: Mean Corpuscular HGB CONC 31.4 g/dL (32.0-36.0); Mean Corpuscular Volume 79.4 fl (81.0-99.0); Mean Platelet Volume 7.7 fL (7.4-10.4); Platelet Count 156 thou/uL (130-400); RBC Distribution Width 17.1 % (11.5-14.5); Red Blood Cell (RBC) Count 3.99 mill/uL (4.20-5.40); White Blood Cell (WBC) Count 14.2 thou/uL (4.8-10.8)
[2017-11-01 13:49] LABS: Anisocytosis SLIGHT = 6-15 cells (100X) (0-5/hpf); Band 4 % (5-11); Lymphocytes 4 % (21-51); MDiff Complete? YES; Neutrophil 92 % (42-75); PLT Morphology Comment Appears Adequate
[2017-11-01] MEDS: Famotidine 20 MG TAB PO SCH (20:43)
[2017-11-01] MEDS: Atorvastatin Calcium 10 MG TAB PO SCH (20:43)
[2017-11-01] MEDS: Montelukast Sodium 10 mg Tablet PO SCH (20:44)
[2017-11-02] MEDS: PROVENTIL INHALER 6.7 G (200 INHALATIONS) INH SCH ×3 (05:14→20:26)
--- NOTE | 2017-11-02 07:50 | PRG ---
DATE OF SERVICE: 11/02/2017 SUBJECTIVE: The patient feels well with no complaints, slept well through the night, she is cooperat ing with therapy. No shortness of breath or cough, but is still very confused and very poor memory. Reports show that she is walking 230 feet x2, becoming fatigue and requiring persistent cueing and a ssistance. OBJECTIVE: LUNGS: Show no rales, rhonchi or wheezes. Good breath sounds. CARDIAC: Regular rhythm. ABDOMEN: Soft and nontender. LABORATORY: Sodium 138, potassium 4.8, chloride 106, bicarbonate 21, BUN 18, creatinine 1.41, gluco se 129, calcium 8.2, total bilirubin 0.5, AST 10, ALT 17. BNP 42. White count is 14,200, hematocrit 31, hemoglobin 10. ASSESSMENT: 1. Significant deconditioning, improving greatly. 2. Resolving exacerbation of chronic obstructive pulmonary disease on tapering steroid dose. 3. Resolved influenza. 4. Persistent dementia with inability to maintain ADLs. PLAN: 1. Continue PT, OT. 2. Continue prednisone taper. 3. Discuss discharge planning with family.
[2017-11-02] MEDS: Cefdinir 300 MG CAP PO SCH ×2 (08:22→20:25)
[2017-11-02] MEDS: Rivastigmine 1.5 MG CAP PO SCH ×2 (08:23→17:21)
[2017-11-02] MEDS: predniSONE 20 MG TAB PO SCH (08:23)
[2017-11-02] MEDS: Valsartan 80 MG TAB PO SCH ×2 (08:23→20:26)
[2017-11-02] MEDS: Potassium Chloride 20 MEQ TAB PO SCH (08:23)
[2017-11-02] MEDS: Loratadine 10 MG TAB PO SCH (08:24)
[2017-11-02] MEDS: Ferrous Gluconate 324 MG TAB PO SCH (12:44)
[2017-11-02] MEDS: Atorvastatin Calcium 10 MG TAB PO SCH (20:25)
[2017-11-02] MEDS: Famotidine 20 MG TAB PO SCH (20:25)
[2017-11-02] MEDS: Montelukast Sodium 10 mg Tablet PO SCH (20:25)
[2017-11-03] MEDS: PROVENTIL INHALER 6.7 G (200 INHALATIONS) INH SCH ×3 (05:26→20:46)
[2017-11-03] MEDS ORDERED: predniSONE 20 MG TAB PO SCH (08:23)
[2017-11-03] MEDS: Rivastigmine 1.5 MG CAP PO SCH ×2 (08:42→17:02)
[2017-11-03] MEDS: Loratadine 10 MG TAB PO SCH (08:42)
[2017-11-03] MEDS: Potassium Chloride 20 MEQ TAB PO SCH (08:42)
[2017-11-03] MEDS: Valsartan 80 MG TAB PO SCH (08:47)
[2017-11-03] MEDS: Polyethylene Glycol 3350 17 GM Packet PO SCH (08:47)
[2017-11-03] MEDS: predniSONE 20 MG TAB PO SCH (08:49)
--- NOTE | 2017-11-03 08:50 | PRG ---
DATE OF SERVICE: 11/03/2017 SUBJECTIVE: The patient lying in bed, resting well. She states she has had no cough or shortness of breath. She has been eating well, but is just complaining of sleepiness. She is cooperating with t roberto. OBJECTIVE: VITAL SIGNS: Blood pressure has decreased to 94/58 and 105/58 on the valsartan 160 twice daily, temp erature 96.2, pulse 58, respirations 18, O2 sats 94% on room air. LABORATORY: White count 2 days ago was elevated to 14,200, but still on steroids. LUNGS: Lungs are clear with no wheezes, rales or rhonchi. CARDIAC: Cardiac examination shows regular rhythm. PT states that the patient is walking 100 feet x2 with standby assist, but requiring cueing and ruthy tance for safety and is using a rolling walker. ASSESSMENT: 1. Resolving chronic obstructive pulmonary disease with exacerbation. We will decrease prednisone t o 10 mg daily. 2. Hypertension with possible hypotension from excessive treatment and will decrease valsartan to 16 0 mg daily. 3. Mild constipation. We will start on MiraLax 17 grams daily, and docusate 100 mg daily as needed. 4. Inability to maintain ADLs and is in the process of discussing long-term placement with family .
[2017-11-03] MEDS: Ferrous Gluconate 324 MG TAB PO SCH (12:31)
[2017-11-03] MEDS: Atorvastatin Calcium 10 MG TAB PO SCH (20:45)
[2017-11-03] MEDS: Famotidine 20 MG TAB PO SCH (20:45)
[2017-11-03] MEDS: Docusate 100 MG CAP PO PRN (20:46)
[2017-11-03] MEDS: Montelukast Sodium 10 mg Tablet PO SCH (20:46)
[2017-11-04] MEDS: PROVENTIL INHALER 6.7 G (200 INHALATIONS) INH SCH ×2 (05:34→15:58)
--- NOTE | 2017-11-04 07:44 | PRG ---
DATE OF SERVICE: 11/04/2017 SUBJECTIVE: The patient feels well, resting well through the night, cooperating well with therapy. No shortness of breath, cough, wheezing, fever or chills. OBJECTIVE: VITAL SIGNS: Blood pressure is up to 111/60 with decrease dose of valsartan to 160 daily, temperatur e 97.6, pulse 60, respirations 18, O2 sats 96% on room air. LUNGS: Lungs are clear with no wheezes, rales or rhonchi. Physical therapy states that the patient is walking 80 and 120 feet at a time before rest with no wheezing or change in vital signs. Main concern is for cognitive deficits and continued need to reinforce need to do therapy. ASSESSMENT: 1. Resolving chronic obstructive pulmonary disease with exacerbation. 2. Resolved influenza. 3. Resolved dehydration. 4. Persistent significant dementia with stable delirium. 5. Severe deconditioning. PLAN: 1. Continue PT and OT. 2. Wean prednisone down to 10 mg daily. 3. Continue valsartan 160 mg daily. 4. Discuss discharge planning with family.
[2017-11-04] MEDS: Potassium Chloride 20 MEQ TAB PO SCH (08:09)
[2017-11-04] MEDS: Loratadine 10 MG TAB PO SCH (08:10)
[2017-11-04] MEDS: Rivastigmine 1.5 MG CAP PO SCH ×2 (08:11→17:15)
[2017-11-04] MEDS: Valsartan 80 MG TAB PO SCH (08:11)
[2017-11-04] MEDS: Polyethylene Glycol 3350 17 GM Packet PO SCH (08:11)
[2017-11-04] MEDS: Ferrous Gluconate 324 MG TAB PO SCH (12:52)
[2017-11-04] MEDS: Montelukast Sodium 10 mg Tablet PO SCH (20:37)
[2017-11-04] MEDS: Famotidine 20 MG TAB PO SCH (20:38)
[2017-11-04] MEDS: Atorvastatin Calcium 10 MG TAB PO SCH (20:38)
[2017-11-05] MEDS: PROVENTIL INHALER 6.7 G (200 INHALATIONS) INH SCH ×3 (03:24→15:47)
[2017-11-05] MEDS: predniSONE 20 MG TAB PO SCH (08:59)
[2017-11-05] MEDS: Valsartan 80 MG TAB PO SCH (09:00)
[2017-11-05] MEDS: Loratadine 10 MG TAB PO SCH (09:00)
[2017-11-05] MEDS: Potassium Chloride 20 MEQ TAB PO SCH (09:00)
[2017-11-05] MEDS: Rivastigmine 1.5 MG CAP PO SCH ×2 (09:00→17:32)
[2017-11-05] MEDS: Polyethylene Glycol 3350 17 GM Packet PO SCH (09:01)
[2017-11-05] MEDS: Pantoprazole 40 MG GRANULES PACKET PER TUBE SCH (09:31)
[2017-11-05] MEDS: Ferrous Gluconate 324 MG TAB PO SCH (12:16)
[2017-11-05] MEDS: Montelukast Sodium 10 mg Tablet PO SCH (21:00)
[2017-11-05] MEDS: Famotidine 20 MG TAB PO SCH (21:01)
[2017-11-05] MEDS: Atorvastatin Calcium 10 MG TAB PO SCH (21:01)
[2017-11-06] MEDS: PROVENTIL INHALER 6.7 G (200 INHALATIONS) INH SCH ×4 (00:26→22:48)
[2017-11-06] MEDS: Rivastigmine 1.5 MG CAP PO SCH ×2 (08:39→17:17)
[2017-11-06] MEDS: Loratadine 10 MG TAB PO SCH (08:39)
[2017-11-06] MEDS: Valsartan 80 MG TAB PO SCH (08:39)
[2017-11-06] MEDS: Potassium Chloride 20 MEQ TAB PO SCH (08:40)
[2017-11-06] MEDS: predniSONE 20 MG TAB PO SCH (08:40)
[2017-11-06] MEDS: Pantoprazole 40 MG GRANULES PACKET PER TUBE SCH (08:41)
[2017-11-06] MEDS: Polyethylene Glycol 3350 17 GM Packet PO SCH (08:42)
--- NOTE | 2017-11-06 08:54 | PRG ---
DATE OF SERVICE: 11/06/2017 DATE OF ADMISSION: 10/27/2017 HISTORY OF PRESENT ILLNESS: Ms. Keane is very pleasant 82-year-old white female who apparently wa s admitted to the hospital with acute exacerbation of her COPD and resolving influenza. She also has had a history of dementia and/or urinary tract recently. SUBJECTIVE: Today, Ms. Keane states she is doing well. She ate a good breakfast. She is trying to drink lots of fluids and still pretty weak, but supposedly getting somewhat stronger. PHYSICAL EXAMINATION: GENERAL: This is a well-developed, well-nourished, very pleasant white female in no apparent distres s at this time. HEENT: Reveals normocephalic, nontraumatic cranium. Pupils are equally round and reactive. Extraoc ular movements are intact. Nose and throat are slightly dry, but clear. NECK: Supple without mass, nodes or bruits. CHEST: Distant, but clear. No rales, rhonchi or wheezes are heard. HEART: Reveals a regular rate and rhythm without murmurs, gallops or rubs. ABDOMEN: Obese, soft, nontender, without organomegaly. Normal bowel sounds are noted. No rebound o r guarding is noted. GENITOURINARY: Deferred. EXTREMITIES: Reveal no clubbing, cyanosis. Trace edema. IMPRESSION: 1. Acute exacerbation of chronic obstructive pulmonary disease, much improved. 2. Influenza, much improved. 3. Dehydration, much improved. 4. Dementia, stable. 5. History of delirium which is stable. 6. Severe deconditioning and generalized weakness. PLAN: 1. Continue present meds. 2. Continue valsartan 160 daily. 3. Continue prednisone 10 mg daily and continue to wean. 4. Continue with stress ulcer prophylaxis. 5. Continue decubitus precautions. 6. Physical therapy and occupational therapy. 7. Discharge planning per Dr. Begum.
[2017-11-06] MEDS: Ferrous Gluconate 324 MG TAB PO SCH (11:53)
[2017-11-06 18:30] VITALS: BMI 26.9
[2017-11-06] MEDS: Famotidine 20 MG TAB PO SCH (21:08)
[2017-11-06] MEDS: Montelukast Sodium 10 mg Tablet PO SCH (21:08)
[2017-11-06] MEDS: Atorvastatin Calcium 10 MG TAB PO SCH (21:09)
[2017-11-07] MEDS: PROVENTIL INHALER 6.7 G (200 INHALATIONS) INH SCH ×2 (06:23→15:09)
[2017-11-07] MEDS: Polyethylene Glycol 3350 17 GM Packet PO SCH (08:25)
[2017-11-07] MEDS: Pantoprazole 40 MG GRANULES PACKET PER TUBE SCH (08:26)
[2017-11-07] MEDS: Rivastigmine 1.5 MG CAP PO SCH ×2 (08:27→17:16)
[2017-11-07] MEDS: Loratadine 10 MG TAB PO SCH (08:28)
[2017-11-07] MEDS: predniSONE 20 MG TAB PO SCH (08:28)
[2017-11-07] MEDS: Potassium Chloride 20 MEQ TAB PO SCH (08:28)
[2017-11-07] MEDS: Valsartan 80 MG TAB PO SCH (08:36)
--- NOTE | 2017-11-07 09:35 | PRG ---
DATE OF SERVICE: 11/07/2017 HISTORY: Ms. Keane is a very pleasant 82-year-old white female. She has been in the hospital wit h acute exacerbation of her COPD and influenza. She has a history of dementia and recent urinary tra ct infection. SUBJECTIVE: The patient states she is doing well. She is just now waking up and states she has not eaten yet but expects to eat well. She has no complaints this morning. OBJECTIVE: VITAL SIGNS: This morning reveal blood pressure 102/61, pulse 63-66, respirations 17-18, O2 saturati on 93-97%, temperature max is 97.9. GENERAL: This is a well-developed, well-nourished, pleasant white female in no apparent distress at this time. HEENT: Reveals normocephalic, nontraumatic cranium. Pupils are equally round and reactive. Extraoc ular movements are intact. Nose and throat are moist this morning. NECK: Supple, without masses, nodes or bruits. LUNGS: Chest is clear to auscultation. No rales, rhonchi, wheezes or cough is heard. CARDIOVASCULAR: Reveals a regular rate and rhythm without murmurs, gallops or rubs. ABDOMEN: Obese, soft, nontender, without organomegaly, normal bowel sounds are noted. No rebound or guarding is noted. : Deferred. EXTREMITIES: Reveal no clubbing, cyanosis with still trace edema. IMPRESSION: 1. Acute exacerbation of chronic obstructive pulmonary disease, much improved. 2. Influenza, much improved. 3. Dehydration, much improved. 4. Dementia, stable. 5. History of delirium which again is stable. 6. Severe deconditioning and generalized weakness. PLAN: 1. Continue present meds. 2. Continue prednisone 10 mg daily, and wean as able. 3. Continue valsartan 160 mg a day. 4. Stress ulcer prophylaxis. 5. Decubitus precautions. 6. Deep venous thrombosis prophylaxis. 7. Continue physical therapy and occupational therapy. 8. Discharge planning per Dr. Keegan Begum.
[2017-11-07] MEDS: Ferrous Gluconate 324 MG TAB PO SCH (12:16)
[2017-11-07] MEDS: Montelukast Sodium 10 mg Tablet PO SCH (20:22)
[2017-11-07] MEDS: Famotidine 20 MG TAB PO SCH (20:23)
[2017-11-07] MEDS: Atorvastatin Calcium 10 MG TAB PO SCH (20:23)
[2017-11-08] MEDS: PROVENTIL INHALER 6.7 G (200 INHALATIONS) INH SCH ×3 (03:05→15:21)
[2017-11-08] MEDS: Ferrous Gluconate 324 MG TAB PO SCH (08:25)
[2017-11-08] MEDS: Potassium Chloride 20 MEQ TAB PO SCH (08:25)
[2017-11-08] MEDS: predniSONE 20 MG TAB PO SCH (08:25)
[2017-11-08] MEDS: Rivastigmine 1.5 MG CAP PO SCH ×2 (08:26→17:01)
[2017-11-08] MEDS: Loratadine 10 MG TAB PO SCH (08:26)
[2017-11-08] MEDS: Pantoprazole 40 MG GRANULES PACKET PER TUBE SCH (08:27)
[2017-11-08] MEDS: Valsartan 80 MG TAB PO SCH (08:27)
[2017-11-08] MEDS: Polyethylene Glycol 3350 17 GM Packet PO SCH (08:27)
[2017-11-08] MEDS: Montelukast Sodium 10 mg Tablet PO SCH (20:46)
[2017-11-08] MEDS: Atorvastatin Calcium 10 MG TAB PO SCH (20:46)
[2017-11-08] MEDS: Famotidine 20 MG TAB PO SCH (20:46)
[2017-11-09] MEDS: PROVENTIL INHALER 6.7 G (200 INHALATIONS) INH SCH ×3 (01:00→14:31)
--- NOTE | 2017-11-09 07:24 | PRG ---
DATE OF SERVICE: 11/08/2017 SUBJECTIVE: The patient feels well, lying in bed, slightly confused, but oriented to person, place a nd time, in no distress, working with physical therapy. OBJECTIVE: VITAL SIGNS: Temperature 98, pulse 65, respirations 18, O2 sats 94%, blood pressure 100/58. LUNGS: Lungs are clear. CARDIAC: Cardiac examination shows regular rhythm. ABDOMEN: Abdomen is soft and nontender. ASSESSMENT: 1. Resolving exacerbation of chronic obstructive pulmonary disease. 2. Resolving influenza. 3. Resolving dehydration. 4. Stable, but severe dementia. 5. Resolving deconditioning. PLAN: Discuss discharge planning with family. Continue prednisone 10 mg daily, valsartan 160 daily. Continue PT, OT.
[2017-11-09] MEDS: predniSONE 20 MG TAB PO SCH (08:30)
[2017-11-09] MEDS: Ferrous Gluconate 324 MG TAB PO SCH (08:30)
[2017-11-09] MEDS: Potassium Chloride 20 MEQ TAB PO SCH (08:30)
[2017-11-09] MEDS: Loratadine 10 MG TAB PO SCH (08:31)
[2017-11-09] MEDS: Rivastigmine 1.5 MG CAP PO SCH ×2 (08:31→17:34)
[2017-11-09] MEDS: Polyethylene Glycol 3350 17 GM Packet PO SCH (08:32)
[2017-11-09] MEDS: Pantoprazole 40 MG GRANULES PACKET PER TUBE SCH (08:32)
[2017-11-09] MEDS: Valsartan 80 MG TAB PO SCH (08:32)
[2017-11-09] MEDS: Atorvastatin Calcium 10 MG TAB PO SCH (20:38)
[2017-11-09] MEDS: Montelukast Sodium 10 mg Tablet PO SCH (20:39)
[2017-11-09] MEDS: Famotidine 20 MG TAB PO SCH (20:39)
[2017-11-10] MEDS: PROVENTIL INHALER 6.7 G (200 INHALATIONS) INH SCH ×4 (00:18→19:58)
[2017-11-10] MEDS: Pantoprazole 40 MG GRANULES PACKET PER TUBE SCH (08:16)
[2017-11-10] MEDS: Polyethylene Glycol 3350 17 GM Packet PO SCH (08:19)
[2017-11-10] MEDS: Loratadine 10 MG TAB PO SCH (08:21)
[2017-11-10] MEDS: Rivastigmine 1.5 MG CAP PO SCH ×2 (08:21→17:26)
[2017-11-10] MEDS: Potassium Chloride 20 MEQ TAB PO SCH (08:22)
[2017-11-10] MEDS: Ferrous Gluconate 324 MG TAB PO SCH (08:22)
[2017-11-10] MEDS: Valsartan 80 MG TAB PO SCH (08:22)
[2017-11-10] MEDS: predniSONE 20 MG TAB PO SCH ×2 (08:29→08:30)
--- NOTE | 2017-11-10 10:07 | PRG ---
DATE OF SERVICE: 11/09/2017 SUBJECTIVE: The patient lying in bed, resting well with no complaints, cooperating with therapy. St ill very weak and unable to maintain ADLs without assistance. OBJECTIVE: VITAL SIGNS: Vital signs show temperature 96.7, pulse 60, respirations 20, O2 sats 97%, blood pressu re 121/59. LUNGS: Lungs are clear. CARDIAC: Cardiac examination shows regular rhythm. ABDOMEN: Abdomen is soft and nontender. Discussed case with daughter who has obtained a stock control clerk and is attempting to have the patient qualifie d for unskilled nursing, but at this time wishes to continue on fpc with therapy in the [facility]. PLAN: Continue PT, OT. Continue to wean off prednisone and will decrease dose to 5 mg daily. Mindi donye to monitor vital signs during therapy.
[2017-11-10] MEDS: Atorvastatin Calcium 10 MG TAB PO SCH (19:57)
[2017-11-10] MEDS: Famotidine 20 MG TAB PO SCH (19:57)
[2017-11-10] MEDS: Docusate 100 MG CAP PO PRN (19:58)
[2017-11-10] MEDS: Montelukast Sodium 10 mg Tablet PO SCH (19:58)
[2017-11-11] MEDS: PROVENTIL INHALER 6.7 G (200 INHALATIONS) INH SCH ×4 (05:29→20:17)
--- NOTE | 2017-11-11 08:49 | PRG ---
DATE OF SERVICE: 11/10/2017 SUBJECTIVE: The patient sitting up eating breakfast. On discussing with the nurses, no complaints. States she slept well and cooperative with therapy, but significant memory loss, limits her to give significant history. OBJECTIVE: LUNGS: Show lungs are clear. CARDIAC EXAMINATION: Shows regular rhythm. ABDOMEN: Soft and nontender. VITAL SIGNS: Show her to have blood pressure of 111/55, pulse 62, respirations 18, O2 sats 96%. Afe brile. Patient did transfer without assistance, walked 230 feet with a rolling walker. No shortness of farzad th, orthostatic changes, and improving fall precautions. ASSESSMENT: 1. Resolving chronic obstructive pulmonary disease with exacerbation secondary to influenza. 2. Resolving deconditioning. 3. Stable altered mental status and dementia. PLAN: Continue PT/OT, decrease prednisone, continue on prednisone 5 mg daily, continue to monitor vi zeke signs during therapy. Continue discharge planning.
[2017-11-11] MEDS: Polyethylene Glycol 3350 17 GM Packet PO SCH (08:55)
[2017-11-11] MEDS: Ferrous Gluconate 324 MG TAB PO SCH (08:56)
[2017-11-11] MEDS: Potassium Chloride 20 MEQ TAB PO SCH (08:56)
[2017-11-11] MEDS: predniSONE 20 MG TAB PO SCH (08:56)
[2017-11-11] MEDS: Rivastigmine 1.5 MG CAP PO SCH ×2 (08:56→17:38)
[2017-11-11] MEDS: Loratadine 10 MG TAB PO SCH (08:57)
[2017-11-11] MEDS: Valsartan 80 MG TAB PO SCH (08:57)
[2017-11-11] MEDS: Pantoprazole 40 MG GRANULES PACKET PER TUBE SCH (08:57)
[2017-11-11] MEDS: Famotidine 20 MG TAB PO SCH (20:17)
[2017-11-11] MEDS: Atorvastatin Calcium 10 MG TAB PO SCH (20:17)
[2017-11-11] MEDS: Docusate 100 MG CAP PO PRN (20:17)
[2017-11-11] MEDS: Montelukast Sodium 10 mg Tablet PO SCH (20:17)
[2017-11-12] MEDS: PROVENTIL INHALER 6.7 G (200 INHALATIONS) INH SCH (05:08)
[2017-11-12 07:21] VITALS: TEMP 96.6
[2017-11-12] MEDS: Pantoprazole 40 MG GRANULES PACKET PER TUBE SCH (09:16)
[2017-11-12] MEDS: Rivastigmine 1.5 MG CAP PO SCH (09:16)
[2017-11-12] MEDS: Polyethylene Glycol 3350 17 GM Packet PO SCH (09:17)
[2017-11-12] MEDS: predniSONE 20 MG TAB PO SCH (09:17)
[2017-11-12] MEDS: Valsartan 80 MG TAB PO SCH (09:18)
[2017-11-12] MEDS: Potassium Chloride 20 MEQ TAB PO SCH (09:18)
[2017-11-12] MEDS: Ferrous Gluconate 324 MG TAB PO SCH (09:18)
[2017-11-12] MEDS: Loratadine 10 MG TAB PO SCH (09:18)
[2017-11-12 12:33] VITALS: BP 85/51
== END 2017-11-12 11:40 | DRG 191 ==
LOC: NAV ACUTE 17:30
PROVIDERS: ADMIT Internal Medicine; ATTEND Internal Medicine
DX: J44.1 Chronic obstructive pulmonary disease with (acute) exacerbation (principal); F05 Delirium due to known physiological condition; I95.2 Hypotension due to drugs; N39.0 Urinary tract infection, site not specified; E86.0 Dehydration; J11.1 Influenza due to unidentified influenza virus with other respiratory manifestations; E87.6 Hypokalemia; F03.90 Unspecified dementia, unspecified severity, without behavioral disturbance, psychotic disturbance, mood disturbance, and anxiety; I10 Essential (primary) hypertension; T46.5X5A Adverse effect of other antihypertensive drugs, initial encounter; K59.00 Constipation, unspecified
CPT/HCPCS: 36415; 80053; 83880; 85025; G8996-GN-CK; G8997-GN-CJ; J7506

== ENCOUNTER 2018-03-12 11:40 | Outpatient (CLI) | payer MEDICARE, MEDICAID ==
[2018-03-12 12:55] LABS: Anisocytosis SLIGHT = 6-15 cells (100X) (0-5/hpf); Band 2 % (5-11); Eosinophils 6 % (0-10); Hypochromia SLIGHT = 6-15 cells (100X) (0-5/hpf); Lymphocytes 17 % (21-51); MDiff Complete? YES; Mean Corpuscular HGB CONC 29.6 g/dL (32.0-36.0); Mean Corpuscular Hemoglobin 23.9 pg (27.0-31.0); Mean Corpuscular Volume 80.5 fl (81.0-99.0); Mean Platelet Volume 6.2 fL (7.4-10.4); Microcytosis SLIGHT = 6-15 cells (100X) (0-5/hpf); Monocytes 6 % (0-10); Neutrophil 68 % (42-75); Platelet Count 240 thou/uL (130-400); RBC Distribution Width 16.1 % (11.5-14.5); Red Blood Cell (RBC) Count 3.77 mill/uL (4.20-5.40); White Blood Cell (WBC) Count 7.8 thou/uL (4.8-10.8)
== END 2018-03-12 11:41 | disposition home or self-care (01) ==
LOC: NAV LABSP 11:40
PROVIDERS: ATTEND Internal Medicine
DX: J11.1 Influenza due to unidentified influenza virus with other respiratory manifestations (principal); J44.9 Chronic obstructive pulmonary disease, unspecified; J45.901 Unspecified asthma with (acute) exacerbation; R06.02 Shortness of breath
CPT/HCPCS: 36415; 85025